=== PATIENT | male | born 1950 | race Caucasian/White ===

== ENCOUNTER 2017-09-14 21:48 | Inpatient (IN) | payer MEDICARE, BC ==
[~2017-09-14] VITALS: Ht 177.8 cm; Wt 86.2 kg
--- NOTE | 2017-09-14 21:51 | NUR ---
TO BED 3 [facility]IB [facility] C/O FEVER AND CHEST CONGESTION, PT WAS GIVEN TYLENOL 650MG AT 1300 PER EMT REPORT. PT AAOX4 NO ACUTE DISTRESS NOTED, RESP EVEN AND UNLABORED. PLACE PT ON CARDIAC MONITORING, CONTINUOUS POX. PENDING ER MD MULLINS.
--- NOTE | 2017-09-14 22:20 | NUR ---
ERIC VALENTINO AT BEDSIDE TO SUSANNA VALENTE.
[2017-09-14 22:53] LABS: BASOPHILS # (AUTO) 0.1 /CMM (0.0-0.2); BASOPHILS % (AUTO) 0.6 % (0.0-2.0); EOSINOPHILS # (AUTO) 0.6 /CMM (0.0-0.7); EOSINOPHILS % (AUTO) 4.9 % (0.0-6.0); HEMATOCRIT 29 % (39-51); LYMPHOCYTES # (AUTO) 1.6 /CMM (0.8-4.8); LYMPHOCYTES % (AUTO) 13.8 % (20.0-44.0); MEAN CORPUSCULAR HEMOGLOBIN 30 PG (26.0-33.0); MEAN CORPUSCULAR HGB CONC 34 g/dl (31.0-36.0); MEAN CORPUSCULAR VOLUME 88 fL (80-96); MONOCYTES # (AUTO) 0.8 /CMM (0.1-1.30); MONOCYTES % (AUTO) 6.9 % (2.0-12.0); NEUTROPHILS # (AUTO) 8.4 /CMM (1.8-8.9); NEUTROPHILS % (AUTO) 73.8 % (43.0-81.0); PLATELET COUNT (AUTO) 228 /CMM (150-450); RDW COEFFICIENT OF VARIATION 14.1 (11.5-15.0); RED BLOOD CELL COUNT(AUTO) 3.33 MIL/uL (4.5-6.0); WHITE BLOOD COUNT (AUTO) 11.3 K/uL (4.3-11.0)
[2017-09-14 23:07] LABS: CALCIUM, SERUM 8.8 mg/dL (8.5-10.1); CARBON DIOXIDE 31 mmol/L (21-32); CHLORIDE 102 mmol/L (98-107); CREATININE 1.1 mg/dL (0.6-1.3); GLUCOSE 121 mg/dL (74-106); POTASSIUM 4.9 mmol/L (3.5-5.1); SODIUM SERUM 137 mmol/L (136-145); UREA NITROGEN, BLOOD 22 mg/dL (7-18)
[2017-09-14 23:18] LABS: TROPONIN I < 0.017 ng/mL (0.00-0.056)
[2017-09-14 23:20] LABS: ALANINE AMINOTRANSFERASE 19 U/L (12-78); ALBUMIN 2.4 g/dL (3.4-5.0); ALKALINE PHOSPHATASE 64 U/L (46-116); ASPARTATE AMINOTRANSFERASE 37 U/L (15-37); B-TYPE NATRIURETIC PEPTIDE 694 PG/ML (0-125); BILIRUBIN,TOTAL 0.2 mg/dL (0.2-1.0); TOTAL PROTEIN, SERUM 6.7 g/dL (6.4-8.2)
--- NOTE | 2017-09-15 00:20 | NUR ---
TELE 268-7
--- NOTE | 2017-09-15 00:34 | NUR ---
REPORT CALLED TO TECHNOLOGY ASSISTANTKATERINE TORRES. PENDING HOSPITAL ADMISSION.
--- NOTE | 2017-09-15 00:35 | NUR ---
RECEIVED REPORT FROM ED IN ER.
[2017-09-15] MEDS ORDERED: CEFTRIAXONE 1 G in IV D5W 50 ML IV ONE (01:00)
[2017-09-15] MEDS ORDERED: LEVOFLOXACIN 500 MG /D5W 100ML 500 MG/100 ML PIGGYBACK IV ONE (01:00)
--- NOTE | 2017-09-15 01:01 | NUR ---
LEVAQUIN 500MG IVPB ENDORSED TO ADOBE DEVELOPERKATERINE TORRES.
[2017-09-15 01:10] VITALS: BP 141/73
--- NOTE | 2017-09-15 01:10 | NUR ---
DIRECTOR OF REVENUE NOTES PT ARRIVED ON TO THE UNIT AT 0110 VIA GURNEY. 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 NO COMPLAINTS OF PAIN, DISTRESS, OR SOB. LUNGS SOUND CLEAR BILATERALLY. PT HAS A RIGHT HAND IV #18. INTACT AND PATENT. ALL PATIENT BELONGINGS HAVE BEEN ACCOUNTED FOR. PT IS TELE MONITORED SINUS RHYTHM RATE 82. PT ORIENTED TO THE UNIT. PT HAS SACRAL REDNESS, LEFT HEEL BLISTER, AND A RASH ON GROIN AREA, ALL DOCUMENTED AND PHOTOGRAPHED. SAFETY PRECAUTIONS IN PLACE, BED IN LOW, LOCKED, POSITION X2 SIDERAILS UP. CALL LIGHT WITHIN REACH. WILL CONTINUE TO MONITOR.
[2017-09-15] MEDS ORDERED: CEFTRIAXONE 1GM BAG (ER ONLY) 50 ML IV ONE (01:16)
[2017-09-15] MEDS ORDERED: LEVOFLOXACIN 500 MG /D5W 100ML 500 MG in PREMIX 1 EA IV SCH (02:00)
[2017-09-15] MEDS ORDERED: Z GUARD REMEDY 2 OZ OINT TP PRN (02:30)
[2017-09-15] MEDS ORDERED: ENOXAPARIN SODIUM 40 MG/0.4 ML DISP.SYRIN SQ SCH (02:30)
[2017-09-15] MEDS ORDERED: ONDANSETRON HCL/PF 4 MG/2 ML VIAL IVP PRN (02:30)
[2017-09-15] MEDS ORDERED: ZOLPIDEM TARTRATE 5 MG TABLET PO PRN (02:30)
[2017-09-15] MEDS ORDERED: ACETAMINOPHEN 325 MG TABLET PO PRN (02:30)
[2017-09-15] MEDS ORDERED: ENOXAPARIN SODIUM 40 MG/0.4 ML DISP.SYRIN SQ ONE (02:37)
[2017-09-15] MEDS ORDERED: MENTHOL/CETYLPYRD (CEPACOL) 1 LOZ LOZENGE PO PRN (03:30)
[2017-09-15] MEDS: IV NS 0.9% 1,000 ML IV PRN ×2 (03:47→21:20)
[2017-09-15 04:00] VITALS: BP 123/69
--- NOTE | 2017-09-15 07:37 | NUR ---
RN CLOSING NOTES PT RESTING IN BED. PT IS A QUADRIPLEGIC. NO COMPLAINTS OF PAIN, DISTRESS, OR SOB. LUNGS SOUND CLEAR BILATERALLY. PT HAS A RIGHT HAND IV #18 RUNNING NS @75ML/HR. PT IS TELE MONITORED SINUS RHYTHM RATE 82. PT ORIENTED TO THE UNIT. SAFETY PRECAUTIONS IN PLACE, BED IN LOW, LOCKED, POSITION X2 SIDERAILS UP. CALL LIGHT WITHIN REACH. WILL ENDORSE TO DAY SHIFT NURSE FOR CONTINUITY OF CARE.
--- NOTE | 2017-09-15 07:44 | NUR ---
AIR CONDITIONING SPECIALIST OPENING NOTES RECEIVED PT A&0X3 RESTING IN BED. TELE: SR 80. PT WITH O2 VIA NC AT 2LPM, PT REPORTING NO SOB, LUNGS AUSCULTATED WITH VERY WET, RHONCHI PRESENT. PT REQUESTING COUGH SUPPRESSANT. PT REPORTING GENERALIZED ARTHRITIC PAIN 8/10 AND REQUESTING NORCO ANALGESIA. PT WITH IVC AT R HAND INTACT AND OPERATIONAL. PT WITH CAMPBELL CATH INTACT AND OPERATIONAL DRAINING LITE YELLOW URINE. PT REQUESTING CALL ABBOTT SUITABLE FOR QUADRIPLEGIC USES- WILL FOLLOW UP WITH CHARGE AND CENT SUPPLY. SAFETY MEASURES CHECKED, BED LOCKED WITH HANDRAILS X4.
[2017-09-15 08:00] VITALS: BP 107/63
[2017-09-15] MEDS ORDERED: HYDR-552 PO (08:20)
[2017-09-15] MEDS ORDERED: ALBU1.257 IH (08:20)
[2017-09-15] MEDS ORDERED: ALLA266C2 TP (08:20)
[2017-09-15] MEDS ORDERED: ALPR0.5T8 PO (08:20)
[2017-09-15] MEDS ORDERED: DULO60CA45 PO (08:20)
[2017-09-15] MEDS ORDERED: GABA-534 PO (08:20)
[2017-09-15] MEDS ORDERED: ATOR10TA PO (08:20)
[2017-09-15] MEDS ORDERED: BISA10SU8 RC (08:20)
[2017-09-15] MEDS ORDERED: MULT-659 PO (08:20)
[2017-09-15] MEDS ORDERED: D-ME118S12 PO (08:20)
[2017-09-15] MEDS ORDERED: ASCO500T9 PO (08:20)
[2017-09-15] MEDS ORDERED: FAMO20TA8 PO (08:20)
[2017-09-15] MEDS ORDERED: BENZ1LOZ58 MM (08:20)
[2017-09-15] MEDS ORDERED: ENOX40DI SQ (08:20)
[2017-09-15] MEDS ORDERED: GABA-536 PO (08:20)
[2017-09-15] MEDS ORDERED: ACET-868 PO (08:20)
[2017-09-15] MEDS ORDERED: TEMA30CA PO (08:20)
[2017-09-15] MEDS ORDERED: DOCU-141 PO (08:20)
[2017-09-15 08:24] LABS: BASOPHILS % (AUTO) 0.3 % (0.0-2.0); EOSINOPHILS # (AUTO) 0.6 /CMM (0.0-0.7); EOSINOPHILS % (AUTO) 5.7 % (0.0-6.0); HEMATOCRIT 28 % (39-51); HEMOGLOBIN 9.6 g/dL (13.5-17.5); LYMPHOCYTES # (AUTO) 1.1 /CMM (0.8-4.8); LYMPHOCYTES % (AUTO) 9.8 % (20.0-44.0); MEAN CORPUSCULAR HEMOGLOBIN 30 PG (26.0-33.0); MEAN CORPUSCULAR HGB CONC 35 g/dl (31.0-36.0); MEAN CORPUSCULAR VOLUME 86 fL (80-96); MONOCYTES # (AUTO) 0.7 /CMM (0.1-1.30); MONOCYTES % (AUTO) 6.3 % (2.0-12.0); NEUTROPHILS # (AUTO) 8.7 /CMM (1.8-8.9); NEUTROPHILS % (AUTO) 77.9 % (43.0-81.0); PLATELET COUNT (AUTO) 203 /CMM (150-450); RDW COEFFICIENT OF VARIATION 12.9 (11.5-15.0); RED BLOOD CELL COUNT(AUTO) 3.19 MIL/uL (4.5-6.0); WHITE BLOOD COUNT (AUTO) 11.1 K/uL (4.3-11.0)
[2017-09-15 08:59] LABS: CALCIUM, SERUM 9.6 mg/dL (8.5-10.1); CREATININE 0.8 mg/dL (0.6-1.3); MAGNESIUM 1.8 mg/dL (1.8-2.4); PHOSPHORUS 4.3 mg/dL (2.5-4.9); POTASSIUM 3.8 mmol/L (3.5-5.1)
[2017-09-15] MEDS: MAGNESIUM HYDROXIDE 30 ML UDC PO PRN (10:17)
[2017-09-15] MEDS: HYDROCODONE/APAP 5/325MG 1 EACH TABLET PO PRN (10:17)
--- NOTE | 2017-09-15 11:20 | NUR ---
WOUND CARE CONSULT: PT PRESENTS WITH QUADRIPLEGIA, INCONTINENCE OF STOOL, DEEP TISSUE INJURY(INTACT) TO SACRUM AND RASH TO PERINEUM, GROIN AREAS, PERIANAL REGION, PRESENT ON ADMISSION. SCARRING AND STAINING OF SKIN NOTED TO SACRAL/BUTTOCKS AREAS. INNER THIGH SCARRING AND STAINING OF SKIN NOTED. FIRST STEP MATTRESS ORDERED. ALL SKIN PROTECTION MEASURES DISCUSSED WITH NURSING STAFF. WILL SEE PRN. VALENTINO IN AGREEMENT WITH PLAN OF CARE. Addendum: 09/15/17 at 1122 by SVETLANA GOMEZ WNDNU Amended: Links added.
[2017-09-15 13:44] LABS: ABG BASE EXCESS 5.3 mmol/L; ABG OXYGEN SATURATION 97.2 % (92.0-98.5); ABG PCO2 29.4 mmHg (35.0-45.0); ABG PO2 100.5 mmHg (75.0-100.0); COHb 0.2 % (0.5-1.5); SITE, ABG Right Radial; VENT MODE, BG RA
[2017-09-15] MEDS: ALBUTEROL HALF STRENGTH 1.25 MG/3 ML VIAL.NEB NEB SCH ×3 (14:15→23:23)
[2017-09-15] MEDS: IPRATROPIUM NEB FS 0.5 MG/2.5 ML AMPUL.NEB NEB SCH ×3 (14:15→23:23)
[2017-09-15 16:00] VITALS: BP 138/71
[2017-09-15] MEDS: CLOTRIMAZOLE 1% 15 GM TUBE TP SCH ×2 (17:00→17:47)
[2017-09-15] MEDS: GUAIFENESIN LA 600 MG TABLET.SA PO SCH ×2 (17:21→21:00)
--- NOTE | 2017-09-15 18:56 | NUR ---
MS RN NOTES. PT A&0X3 RESTING IN BED WITH AT BEDSIDE. PT TOLERATING ROOM AIR, REPORTING NO SOB. PT WITH IVC AT R HAND INTACT AND OPERATIONAL. PT REPORTING NO PAIN AT THIS TIME. PT WITH CAMPBELL CATH INTACT AND OPERATIONAL DRAINING LITE YELLOW URINE. PT BED LOCKED WITH HANDRAILSX4. NOW WITH INFLATING MATTRESS TOPPER. PT WITHOUT CONCERN OR COMPLAINT AT THIS TIME. WILL ENDORSE TO NIGHT NURSE.
[2017-09-15] MEDS ORDERED: VANCOMYCIN 1.25 GM in IV D5W 500 ML IV ONE (19:00)
[2017-09-15] MEDS ORDERED: FEE PK DOSING 1 MIN EA MC ONE (19:05)
--- NOTE | 2017-09-15 19:30 | NUR ---
MS/RN OPENING NOTES PT RECEIVED IN BED. A/OX3 WITH AT BEDSIDE. ON ROOM AIR, BREATHING EVEN AND UNLABORED. NON PRODUCTIVE COUGH NOTED. TRACH CAPPED. CAMPBELL IN PLACE AND DRAINING TO GRAVITY. IV TO RIGHT HAND PATENT AND INTACT. PER PT AND , REQUESTED MEDICATION LIST FROM [facility]. FACILITY SAID THEY WOULD FAX THE LIST TOMORROW MORNING. BED IN LOW/LOCKED POSITION. CALL LIGHT IN REACH HOWEVER PT REQUESTING CALL LIGHT THAT CAN BE USED BY BLOWING INTO IT DUE TO HIS QUADRAPLEGIA. DAY SHIFT RN FOLLOWED UP WITH ENGINEERING AND NONE ARE AVAILABLE AT THIS TIME. PT AND AWARE. BED IN LOW/LOCKED POSITION WITH CALL LIGHT IN REACH. SIDE RAILS UPX2. WILL CONTINUE TO MONITOR
[2017-09-15 20:00] VITALS: BP 141/77
[2017-09-15] MEDS: ENOXAPARIN SODIUM 40 MG/0.4 ML DISP.SYRIN SQ SCH (21:33)
--- NOTE | 2017-09-15 21:35 | NUR ---
MS/RN NOTES PT RECEIVED MUCINEX AT 1721. TOO CLOSE IN TIME TO ADMINISTER SCHEDULE 2100 DOSE.
--- NOTE | 2017-09-16 01:01 | NUR ---
MS/RN NOTES PT REQUESTING XANAX, TAKES 0.5MG PO AT [facility]. SPRAY DRIER OPERATOR, NELY ON UNIT, WITH ORDERS FOR XANAX 0.5MG PO HS PRN. ORDERS NOTED, VERIFIED AND CARRIED OUT. WILL ADMINISTER PER PT REQUEST.
[2017-09-16] MEDS ORDERED: ALPRAZOLAM 0.5 MG TABLET ONE (01:07)
[2017-09-16] MEDS: ALPRAZOLAM 0.25 MG TABLET PO PRN (01:16)
[2017-09-16] MEDS: LEVOFLOXACIN 500 MG /D5W 100ML 500 MG in PREMIX 1 EA IV SCH (02:18)
[2017-09-16] MEDS: ALBUTEROL HALF STRENGTH 1.25 MG/3 ML VIAL.NEB NEB SCH ×6 (03:31→17:00)
[2017-09-16] MEDS: IPRATROPIUM NEB FS 0.5 MG/2.5 ML AMPUL.NEB NEB SCH ×5 (03:32→20:54)
[2017-09-16] MEDS: HYDROCODONE/APAP 5/325MG 1 EACH TABLET PO PRN ×2 (04:24→18:24)
--- NOTE | 2017-09-16 07:45 | NUR ---
MS/RN OPENING NOTES PT WITH EYES CLOSED. EASILY AROUSABLE. A/OX3. ON ROOM AIR, BREATHING EVEN AND UNLABORED. NON PRODUCTIVE COUGH PRESENT. TRACH CAPPED. CAMPBELL IN PLACE AND DRAINING TO GRAVITY. IV TO RIGHT HAND PATENT AND INTACT. RELAYED TO DAY SHIFT RN REQUEST OF MEDICATION LIST FROM [facility]. SHOULD BE EXPECTED THIS AM. WILLING TO FOLLOW UP WITH FACILITY THIS MORNING. BED IN LOW/LOCKED POSITION. BED IN LOW/LOCKED POSITION WITH CALL LIGHT IN REACH. SIDE RAILS UPX2. ENDORSED TO AM SHIFT CARLOS AND CHECK AVAILABILITY OF NEW CALL LIGHT.
[2017-09-16 08:00] VITALS: BP 138/73
--- NOTE | 2017-09-16 08:32 | NUR ---
RN OPENING NOTES RECEIVED PT. PT IS STABLE AND RESTING IN BED. A/OX4, PT IS BEDBOUND DUE TO QUADRIPLEGIA. NO S/S OF RESPIRATORY DISTRESS OR SOB, PT IS TRACHED/CAPPED WITH NO VENT SUPPORT. PT IS ON RA WITH O2 SAT WNL. FC IN PLACE AND PATENT. IV ACCESS LOCATED ON R HAND 18 G INFUSING NS AT 75 ML/HR. PT REQUESTS WE RECEIVE FAX OF MED LIST FROM [facility] IN ORDER TO RECONCILE, STATING THAT "I AM NOT GETTING SLEEP AND MY PAIN IS UNCONTROLLED WITHOUT THOSE MEDS". WILL F/U WITH FACILITY. SAFETY MEASURES IN PLACE, CALL LIGHT WITHIN REACH. WILL CONTINUE TO MONITOR.
[2017-09-16] MEDS: GUAIFENESIN LA 600 MG TABLET.SA PO SCH ×2 (08:43→21:12)
[2017-09-16] MEDS: VANCOMYCIN 1 GM in IV D5W 250 ML IV SCH ×2 (08:43→20:40)
[2017-09-16] MEDS: CLOTRIMAZOLE 1% 15 GM TUBE TP SCH ×2 (09:37→17:00)
[2017-09-16 16:00] VITALS: BP 139/80
[2017-09-16] MEDS: IV NS 0.9% 1,000 ML IV PRN (18:14)
[2017-09-16] MEDS: PIPERACILLIN /TAZOBACTAM 4.5 G in IV D5W 50 ML IV SCH (18:19)
--- NOTE | 2017-09-16 18:55 | NUR ---
RN CLOSING NOTES PT IS STABLE AND RESTING IN BED. NO S/S OF DISTRESS OR SOB. NO C/O PAIN AT THIS TIME. PT INR ORDERED STAT FOR PT IN ORDER TO ADMINISTER COUMADIN. AWAITING LAB. ALL PT NEEDS ANTICIPATED AND MET. SAFETY MEASURES IN PLACE. CALL LIGHT WITHIN REACH. WILL ENDORSE TO EQUIPMENT COORDINATOR FOR CARLOS. Addendum: 09/16/17 at 1858 by JONN JONES WRONG PATIENT. PT STABLE AND RESTING IN BED. AT BEDSIDE. MD PLACED MEDICATION RECONCILIATION ORDERS. CHARGE NURSE SPEAKING WITH MD TO CLARIFY. SAFETY MEASURES IN PLACE, CALL LIGHT WITHIN REACH. WILL ENDORSE TO EQUIPMENT COORDINATOR FOR CARLOS.
[2017-09-16] MEDS ORDERED: SUCRALFATE 1 G/10 ML UDC PO ONE (19:00)
[2017-09-16] MEDS ORDERED: HYDROCODONE/APAP 5/325MG 1 EACH TABLET PO PRN (19:00)
[2017-09-16] MEDS ORDERED: ALPRAZOLAM 0.5 MG TABLET PO PRN (19:00)
--- NOTE | 2017-09-16 19:40 | NUR ---
MS RN OPENING NOTES RECEIVED PT IN BED ALERT.AWAKE,VERBALLY RESPONSIVE.TRACH PATENT, RESPIRATIONS EVEN, UNLABORED,NO RESPIRATORY DISTRESS NOTED. DENIES ANY PAIN OR DISCOMFORT AT THIS TIME. F/C IN PLACE DRAINING YELLOW COLOR URINE.KEPT CLEAN AND COMFORTABLE.ATTENDED ALL PT NEEDS. CALL LIGHT WITHIN REACH. WILL CONTINUE TO MONITOR ACCORDINGLY.
[2017-09-16 20:00] VITALS: BP 138/68
[2017-09-16] MEDS ORDERED: GABAPENTIN 300 MG CAPSULE ONE (20:13)
[2017-09-16] MEDS: GABAPENTIN 300 MG CAPSULE PO SCH (20:18)
[2017-09-16] MEDS ORDERED: SUCRALFATE 1 G/10 ML UDC ONE (20:40)
[2017-09-16] MEDS ORDERED: TEMAZEPAM 15 MG CAPSULE ONE (20:41)
[2017-09-16] MEDS ORDERED: ATORVASTATIN 10 MG TABLET ONE (21:11)
[2017-09-16] MEDS: TEMAZEPAM 15 MG CAPSULE PO PRN (21:12)
[2017-09-16] MEDS: ATORVASTATIN 10 MG TABLET PO SCH (21:12)
[2017-09-16] MEDS: ENOXAPARIN SODIUM 40 MG/0.4 ML DISP.SYRIN SQ SCH (21:13)
[2017-09-16] MEDS: BISACODYL SUPP (10 MG) 10 MG/SUPP.RECT SUPP.RECT RC SCH (21:22)
[2017-09-16 22:00] VITALS: BP 130/68
[2017-09-16 22:49] LABS: BASOPHILS % (AUTO) 0.4 % (0.0-2.0); EOSINOPHILS # (AUTO) 0.6 /CMM (0.0-0.7); EOSINOPHILS % (AUTO) 8.4 % (0.0-6.0); HEMATOCRIT 25 % (39-51); HEMOGLOBIN 8.7 g/dL (13.5-17.5); LYMPHOCYTES # (AUTO) 1.1 /CMM (0.8-4.8); MEAN CORPUSCULAR HEMOGLOBIN 30 PG (26.0-33.0); MEAN CORPUSCULAR HGB CONC 34 g/dl (31.0-36.0); MEAN CORPUSCULAR VOLUME 87 fL (80-96); MONOCYTES # (AUTO) 0.4 /CMM (0.1-1.30); MONOCYTES % (AUTO) 6.1 % (2.0-12.0); NEUTROPHILS % (AUTO) 70.1 % (43.0-81.0); PLATELET COUNT (AUTO) 194 /CMM (150-450); RDW COEFFICIENT OF VARIATION 12.9 (11.5-15.0); RED BLOOD CELL COUNT(AUTO) 2.93 MIL/uL (4.5-6.0); WHITE BLOOD COUNT (AUTO) 7.1 K/uL (4.3-11.0)
[2017-09-16 22:53] LABS: CALCIUM, SERUM 9.4 mg/dL (8.5-10.1); CREATININE 0.6 mg/dL (0.6-1.3); MAGNESIUM 1.5 mg/dL (1.8-2.4); PHOSPHORUS 4.1 mg/dL (2.5-4.9); POTASSIUM 3.5 mmol/L (3.5-5.1)
[2017-09-17] MEDS: IPRATROPIUM NEB FS 0.5 MG/2.5 ML AMPUL.NEB NEB SCH ×7 (00:01→23:26)
[2017-09-17] MEDS: ALBUTEROL HALF STRENGTH 1.25 MG/3 ML VIAL.NEB NEB SCH ×6 (00:04→23:26)
[2017-09-17] MEDS: PIPERACILLIN /TAZOBACTAM 4.5 G in IV D5W 50 ML IV SCH ×4 (00:19→17:31)
[2017-09-17] MEDS: LEVOFLOXACIN 500 MG /D5W 100ML 500 MG in PREMIX 1 EA IV SCH (01:55)
[2017-09-17] MEDS: HYDROCODONE/APAP 5/325MG 1 EACH TABLET PO PRN ×3 (04:41→21:00)
--- NOTE | 2017-09-17 06:37 | NUR ---
MS RN CLOSING NOTES PT IN BED,AWAKE,ALERT,VERBALLY RESPONSIVE. TRACH PATENT NO SOB,NO APPARENT DISTRESS NOTED.NO S/SX OF PAIN OR DISCOMFORT NOTED. IV SITE INTACT,PATENT.F/C IN PLACE DRAINING YELLOW COLOR URINE.KEPT CLEAN AND COMFORTABLE.ATTENDED ALL NEEDS.WILL MONITOR ACCORDINGLY.
--- NOTE | 2017-09-17 07:30 | NUR ---
RN OPEN NOTES RECEIVED REPORT FROM CORRESPONDENT NURSE. PATIENT IS IN BED, AWAKE AND ALERT TO NAME, PLACE AND TIME. VERY PLEASANT TO TALK WITH. BED IN LOW POSITION, LOCKED AND TWO SIDE RAILS ARE UP. CALL LIGHT WITHIN REACH FOR SAFETY. NO SIGNS AND SYMPTOMS OF DISTRESS. BREATHING IS UNLABORED AND EVEN BILATERALLY. WILL CONTINUE TO MONITOR AND ASSESS PATIENT THROUGH OUT MY SHIFT
[2017-09-17 08:00] VITALS: BP 135/70
[2017-09-17 08:33] LABS: CALCIUM, SERUM 9.7 mg/dL (8.5-10.1); CREATININE 0.6 mg/dL (0.6-1.3); POTASSIUM 4.1 mmol/L (3.5-5.1)
[2017-09-17] MEDS: DOCUSATE SODIUM 100 MG CAPSULE PO SCH ×2 (09:27→17:40)
[2017-09-17] MEDS: ASCORBIC ACID 500 MG TABLET PO SCH ×2 (09:28→17:40)
[2017-09-17] MEDS: FAMOTIDINE (20 MG) 20 MG TABLET PO SCH ×2 (09:28→17:40)
[2017-09-17] MEDS: GUAIFENESIN LA 600 MG TABLET.SA PO SCH ×2 (09:28→20:07)
[2017-09-17] MEDS: GABAPENTIN 300 MG CAPSULE PO SCH ×2 (09:28→20:07)
[2017-09-17] MEDS: DULOXETINE HCL 30 MG CAPSULE.DR PO SCH (09:28)
[2017-09-17] MEDS: CLOTRIMAZOLE 1% 15 GM TUBE TP SCH ×2 (09:29→17:42)
[2017-09-17] MEDS: ENOXAPARIN SODIUM 40 MG/0.4 ML DISP.SYRIN SQ SCH ×2 (09:41→21:00)
[2017-09-17] MEDS: VANCOMYCIN 1 GM in IV D5W 250 ML IV SCH ×2 (09:56→20:23)
[2017-09-17] MEDS: GABAPENTIN 400 MG CAPSULE PO SCH (14:56)
[2017-09-17] MEDS ORDERED: ALBUTEROL HALF STRENGTH 1.25 MG/3 ML VIAL.NEB NEB SCH (15:30)
[2017-09-17 16:00] VITALS: BP 153/79
[2017-09-17] MEDS: LACTOBACILLUS RHAMNOSUS GG 1 EACH CAP.SPRINK PO SCH (17:38)
--- NOTE | 2017-09-17 18:00 | NUR ---
SPUTUM AND URINE SPECIMEN COLLECTED. LAB NOTIFIED
[2017-09-17] MEDS: IV NS 0.9% 1,000 ML IV PRN (18:44)
--- NOTE | 2017-09-17 18:52 | NUR ---
RN CLOSING NOTES PATIENT IS IN BED, AWAKE AND ALERT TO NAME, PLACE AND TIME. AT BEDSIDE. NO SIGNS AND SYMPTOMS OF DISTRESS. IV SITE IS INTACT AND PATENT, HL ONLY. CAMPBELL IS IN PLACE. BED IN LOW POSITION, LOCKED AND TWO SIDE RAILS ARE UP. CALL LIGHT WITHIN REACH FOR SAFETY. ALL NURSING CARE ANTICIPATED AND ATTENDED FOR. WILL ENDORSE TO VALVE SETTER FOR CARLOS
--- NOTE | 2017-09-17 19:30 | NUR ---
MS RN OPENING NOTES RECEIVED PT IN BED AWAKE ALERT,VERBALLY RESPONSIVE.TRACH PATENT,ON ROOM AIR, NO RESPIRATORY DISTRESS NOTED. O2 SAT 98%.DENIES ANY PAIN OR DISCOMFORT AT THIS TIME. F/C IN PLACE DRAINING YELLOW COLOR URINE. KEPT CLEAN AND COMFORTABLE.ATTENDED ALL NEEDS.WILL CONTINUE TO MONITOR ACCORDINGLY
[2017-09-17 20:00] VITALS: BP 162/75
[2017-09-17 20:30] VITALS: BP 140/76
[2017-09-17] MEDS ORDERED: hydrALAZINE HCL 25 MG TABLET ONE (20:42)
--- NOTE | 2017-09-17 20:45 | NUR ---
MS RN NOTE PT NOTED WITH BP 162/75 P 92, KATHI DOW NOTIFIED, NEW ORDER RECEIVED FOR HYDRALAZINE 25 MG PO Q6H PRN FOR BP.155. ORDER NOTED AND CARRIED OUT.MEDICATION ADMINISTERED ORDERED.
[2017-09-17] MEDS: hydrALAZINE HCL 25 MG TABLET PO PRN (20:48)
[2017-09-17] MEDS: TEMAZEPAM 15 MG CAPSULE PO PRN (21:01)
[2017-09-17] MEDS: ATORVASTATIN 10 MG TABLET PO SCH (21:01)
--- NOTE | 2017-09-17 21:30 | NUR ---
MS RN NOTES PT REFUSED DULCOLAX SUPPOSITORY TO BE ADMINISTERED,OFFERED X3 EXPLAINED BENEFITS,REFUSING.REFUSED LOVENOX, STATED "IT WAS GIVEN TO ME THIS MORNING I DON'T NEED IT"WILL CONTINUE TO MONITOR ACCORDINGLY.
[2017-09-17] MEDS: BISACODYL SUPP (10 MG) 10 MG/SUPP.RECT SUPP.RECT RC SCH (21:32)
[2017-09-18] MEDS: PIPERACILLIN /TAZOBACTAM 4.5 G in IV D5W 50 ML IV SCH ×4 (00:02→18:00)
[2017-09-18] MEDS: LEVOFLOXACIN 500 MG /D5W 100ML 500 MG in PREMIX 1 EA IV SCH (01:45)
[2017-09-18] MEDS: ALPRAZOLAM 0.25 MG TABLET PO PRN (01:55)
[2017-09-18] MEDS: ALBUTEROL HALF STRENGTH 1.25 MG/3 ML VIAL.NEB NEB SCH ×6 (03:42→22:31)
[2017-09-18] MEDS: IPRATROPIUM NEB FS 0.5 MG/2.5 ML AMPUL.NEB NEB SCH ×6 (03:42→22:31)
[2017-09-18 06:18] LABS: APPEARANCE,URINE CLEAR (CLEAR); BILIRUBIN,URINE NEGATIVE (NEGATIVE); BLOOD, URINE TRACE-INTA Ery/uL (NEGATIVE); COLOR,URINE YELLOW (YELLOW); KETONES,URINE NEGATIVE (NEGATIVE); LEUKOCYTE ESTERASE ,URINE 1+ (NEGATIVE); NITRITE, URINE NEGATIVE (NEGATIVE); PH,URINE 6.5 (5.0-8.0); PROTEIN,URINE NEGATIVE (NEGATIVE); UGLUCOSE NEGATIVE (NEGATIVE); UROBILINOGEN,URINE 0.2 EU/dL (0.2)
[2017-09-18 06:38] LABS: BACTERIA,URINE Few /HPF (None Seen); SQUAMOUS EPITHELIAL CELL,UR Few /HPF (None Seen)
--- NOTE | 2017-09-18 06:42 | NUR ---
MS RN CLOSING NOTES PT ALERT,AWAKE,VERBALLY RESPONSIVE,TRACH PATENT,NO RESPIRATORY DISTRESS NOTED, ON ROOM AIR. DENIES ANY PAIN OR DISCOMFORT NOTED. F/C IN PLACE DRAINING YELLOW COLOR URINE.KEPT CLEAN AND COMFORTABLE. ATTENDED ALL NEEDS
[2017-09-18 08:00] VITALS: BP 139/67
--- NOTE | 2017-09-18 08:51 | NUR ---
RN OPENING NOTES PATIENT RESTING COMFORTABLY IN BED. AOX4. NO ACUTE DISTRESS. RESPIRATIONS EVEN AND UNLABORED. DENIES ANY PAIN. DENIES SOB AND CP. SATURATING ADEQUATELY ON RA TRACH IN PLACE. F/C IN PLACE DRAINING URINE. RIGHT HAND 18G PATENT AND INTACT WITH NS RUNNING AT 75ML/HR. BED LOCKED IN THE LOWEST POSITION WITH SIDERAILS UP X2. CALL LIGHT WITHIN REACH. WILL CONTINUE TO MONITOR, ASSESS AND EDUCATE PATIENT THROUGHOUT SHIFT.
[2017-09-18] MEDS: VANCOMYCIN 1 GM in IV D5W 250 ML IV SCH (09:44)
[2017-09-18] MEDS: GUAIFENESIN LA 600 MG TABLET.SA PO SCH ×2 (09:49→20:21)
[2017-09-18] MEDS: FAMOTIDINE (20 MG) 20 MG TABLET PO SCH ×2 (09:49→16:31)
[2017-09-18] MEDS: LACTOBACILLUS RHAMNOSUS GG 1 EACH CAP.SPRINK PO SCH ×2 (09:49→16:31)
[2017-09-18] MEDS: GABAPENTIN 300 MG CAPSULE PO SCH ×2 (09:49→20:21)
[2017-09-18] MEDS: DOCUSATE SODIUM 100 MG CAPSULE PO SCH ×2 (09:49→16:31)
[2017-09-18] MEDS: DULOXETINE HCL 30 MG CAPSULE.DR PO SCH (09:49)
[2017-09-18] MEDS: ASCORBIC ACID 500 MG TABLET PO SCH ×2 (09:49→16:31)
[2017-09-18] MEDS: ENOXAPARIN SODIUM 40 MG/0.4 ML DISP.SYRIN SQ SCH ×2 (09:51→20:37)
[2017-09-18] MEDS: CLOTRIMAZOLE 1% 15 GM TUBE TP SCH ×2 (09:56→17:33)
[2017-09-18 11:18] LABS: CALCIUM, SERUM 9.6 mg/dL (8.5-10.1); CREATININE 0.7 mg/dL (0.6-1.3); POTASSIUM 3.9 mmol/L (3.5-5.1)
[2017-09-18] MEDS: HYDROCODONE/APAP 5/325MG 1 EACH TABLET PO PRN ×3 (11:18→21:00)
[2017-09-18] MEDS ORDERED: ALBUTEROL HALF STRENGTH 1.25 MG/3 ML VIAL.NEB NEB PRN (12:30)
[2017-09-18 16:00] VITALS: BP 156/76
[2017-09-18] MEDS: GABAPENTIN 400 MG CAPSULE PO SCH (16:31)
[2017-09-18] MEDS: IV NS 0.9% 1,000 ML IV PRN (16:46)
--- NOTE | 2017-09-18 18:45 | NUR ---
RN NON ADMIN NOTES 1800 DOSE OF ZOSYN HELD. 1300 DOSE NOT COMPLETED. WILL NOTIFY NIGHT RN. VERIFIED WITH SECOND RN.
--- NOTE | 2017-09-18 19:10 | NUR ---
RN NOTES PATIENT RESTING COMFORTABLE AT THIS TIME. AOX4. CAPPED TRACH IN PLACE. NO ACUTE DISTRESS. RESPIRATIONS EVEN AND UNLABORED. SKIN CARE DONE. PATIENT TURNED Q2. ALL NEEDS MET. ALL MEDS GIVEN APPROPRIATE. IV PATENT AND INTACT. BED LOCKED IN THE LOWEST POSITION WITH SIDE RAILS UP X2. WILL ENDORSE TO NIGHT RN FOR CARLOS.
--- NOTE | 2017-09-18 19:52 | NUR ---
MS/RN OPENING NOTES PATIENT IN BED, ALERT, ORIENTED X3, ABLE TO VERBALIZE NEEDS. PATIENT REQUIRE EXTENSIVE ASSISTANCE WITH ADL, QUADRIPLEGIC, RECEIVED ENDORSEMENT FROM AM RN, PATIENT REQUESTED FOR SLEEPING PILL RESTORIL FOR BEDTIME AND INFORMED THAT HE TAKES LOVENOX DURING THE DAY TIME AND PREFER TO TAKE IT AT DAYTIME, WILL INFORM MD AND FOLLOW UP. NEEDS REPOSITON AND TURNING , IV FLUIDS ORDER NS AT 75 ML/HR. WILL CONTINUE TO MONITOR. RESPITATION EVEN AND UNLABORED, SKIN WARM TO TOUCH, ON CAMPBELL CATHETER.
[2017-09-18 20:00] VITALS: BP 127/56
--- NOTE | 2017-09-18 20:00 | NUR ---
RN CLOSING NOTES PATIENT IS RESTING COMFORTABLY IN BED AT THIS TIME. AOX4. COMPLAINING OF MILD PAIN. DENIES SOB AND CP. RESPIRATIONS EVEN AND UNLABORED. NO ACUTE DISTRESS. IV PATENT AND INTACT. BED LOCKED IN THE LOWEST POSITION. SIDE RAILS UP X2. ALL NEEDS MET ALL MEDS GIVEN APPROPRIATE. WILL ENDORSE TO NIGHT RN FOR CARLOS.
[2017-09-18] MEDS: VANCOMYCIN 0.75 GM in IV D5W 250 ML IV SCH (20:08)
[2017-09-18] MEDS: ATORVASTATIN 10 MG TABLET PO SCH (21:01)
[2017-09-18] MEDS: BISACODYL SUPP (10 MG) 10 MG/SUPP.RECT SUPP.RECT RC SCH (21:05)
[2017-09-18] MEDS: TEMAZEPAM 15 MG CAPSULE PO PRN (21:24)
[2017-09-19] MEDS: PIPERACILLIN /TAZOBACTAM 4.5 G in IV D5W 50 ML IV SCH ×5 (00:48→23:41)
[2017-09-19] MEDS: LEVOFLOXACIN (500MG) 500 MG TABLET PO SCH (02:34)
[2017-09-19] MEDS: ALBUTEROL HALF STRENGTH 1.25 MG/3 ML VIAL.NEB NEB SCH ×7 (02:43→23:30)
[2017-09-19] MEDS: IPRATROPIUM NEB FS 0.5 MG/2.5 ML AMPUL.NEB NEB SCH ×6 (02:43→23:30)
[2017-09-19] MEDS: IV NS 0.9% 1,000 ML IV PRN (06:50)
[2017-09-19 06:59] LABS: BASOPHILS % (AUTO) 0.1 % (0.0-2.0); EOSINOPHILS # (AUTO) 0.8 /CMM (0.0-0.7); EOSINOPHILS % (AUTO) 11.3 % (0.0-6.0); HEMATOCRIT 27 % (39-51); HEMOGLOBIN 9.4 g/dL (13.5-17.5); LYMPHOCYTES % (AUTO) 14.2 % (20.0-44.0); MEAN CORPUSCULAR HEMOGLOBIN 31 PG (26.0-33.0); MEAN CORPUSCULAR HGB CONC 35 g/dl (31.0-36.0); MEAN CORPUSCULAR VOLUME 87 fL (80-96); MONOCYTES # (AUTO) 0.4 /CMM (0.1-1.30); MONOCYTES % (AUTO) 6.2 % (2.0-12.0); NEUTROPHILS # (AUTO) 4.7 /CMM (1.8-8.9); NEUTROPHILS % (AUTO) 68.2 % (43.0-81.0); PLATELET COUNT (AUTO) 212 /CMM (150-450); RDW COEFFICIENT OF VARIATION 12.9 (11.5-15.0); WHITE BLOOD COUNT (AUTO) 6.9 K/uL (4.3-11.0)
--- NOTE | 2017-09-19 07:30 | NUR ---
RN OPENING NOTES PATIENT RESTING COMFORTABLY IN BED. AOX4. NO ACUTE DISTRESS, NO SOB NOTED. DENIES ANY PAIN OR DISCOMFORT. SATURATING ADEQUATELY ON RA TRACH IN PLACE. F/C IN PLACE DRAINING URINE. IV SITE PATENT AND INTACT WITH NS RUNNING AT 75ML/HR. BED LOCKED IN THE LOWEST POSITION WITH SIDERAILS UP X2. CALL LIGHT WITHIN REACH. WILL CONTINUE TO MONITOR ACCORDINGLY
--- NOTE | 2017-09-19 07:45 | NUR ---
MS/RN CLOSING NOTES GIVEN REPORT TO AM RN FOR CARLOS. PATIENT ALERT, ORIENTED X3, EXTENSIVE ASSOSTANCE NEEDED, FEEDING ASSISTANCE, ASPIRATION PRECAUTION, ON MONITORING AND REPOSITION AND TURNING , SKIN WARM TO TOUCH, BED IN LOCK POSITION.
[2017-09-19 07:52] LABS: CALCIUM, SERUM 9.7 mg/dL (8.5-10.1); CREATININE 0.6 mg/dL (0.6-1.3); MAGNESIUM 1.8 mg/dL (1.8-2.4); PHOSPHORUS 4.4 mg/dL (2.5-4.9); POTASSIUM 3.8 mmol/L (3.5-5.1)
[2017-09-19 08:00] VITALS: BP 154/71
[2017-09-19] MEDS: VANCOMYCIN 0.75 GM in IV D5W 250 ML IV SCH ×2 (09:10→20:58)
[2017-09-19] MEDS: DOCUSATE SODIUM 100 MG CAPSULE PO SCH ×2 (09:11→17:44)
[2017-09-19] MEDS: MAGNESIUM HYDROXIDE 30 ML UDC PO PRN (09:11)
[2017-09-19] MEDS: GABAPENTIN 300 MG CAPSULE PO SCH ×2 (09:11→21:20)
[2017-09-19] MEDS: DULOXETINE HCL 30 MG CAPSULE.DR PO SCH (09:11)
[2017-09-19] MEDS: GUAIFENESIN LA 600 MG TABLET.SA PO SCH ×2 (09:11→21:20)
[2017-09-19] MEDS: ASCORBIC ACID 500 MG TABLET PO SCH ×2 (09:12→17:43)
[2017-09-19] MEDS: HYDROCODONE/APAP 5/325MG 1 EACH TABLET PO PRN ×3 (09:12→21:47)
[2017-09-19] MEDS: FAMOTIDINE (20 MG) 20 MG TABLET PO SCH ×2 (09:12→17:43)
[2017-09-19] MEDS: LACTOBACILLUS RHAMNOSUS GG 1 EACH CAP.SPRINK PO SCH ×2 (09:12→17:43)
[2017-09-19] MEDS: ENOXAPARIN SODIUM 40 MG/0.4 ML DISP.SYRIN SQ SCH (09:14)
[2017-09-19] MEDS: CLOTRIMAZOLE 1% 15 GM TUBE TP SCH ×2 (09:27→17:53)
[2017-09-19 16:00] VITALS: BP 134/60
[2017-09-19] MEDS: GABAPENTIN 400 MG CAPSULE PO SCH (17:48)
--- NOTE | 2017-09-19 19:30 | NUR ---
RN CLOSING NOTES PATIENT IN BED RESTING. NO ACUTE DISTRESS, NO SOB NOTED. ALL NEEDS ATTENDED AND PROVIDED. KEPT A SAFE ENVIRONMENT. BED IN LOW, LOCKED POSITION, SIDERIALS UPX2. CALL LIGHT IN REACH. ENDORSED TO NIGHT RN FOR CARLOS.
--- NOTE | 2017-09-19 19:30 | NUR ---
MS RN INITIAL NOTE PT RECEIVED AWAKE IN BED. A/O X4 AND ABLE TO VERBALIZE NEEDS. ON ROOM AIR AND TOLERATING WELL. BREATHING EVEN, REGULAR AND UNLABORED. TRACH WITH CAP PRESENT AND INTACT. NO ACUTE DISTRESS NOTED. HOB ELEVATED. IV R HAND CLEAN, INTACT AND PATENT. CALL LIGHT WITHIN REACH. WILL CONTINUE TO MONITOR.
[2017-09-19 20:00] VITALS: BP 140/79
[2017-09-19] MEDS: ATORVASTATIN 10 MG TABLET PO SCH (21:19)
[2017-09-19] MEDS: TEMAZEPAM 15 MG CAPSULE PO PRN (21:20)
[2017-09-19] MEDS: BISACODYL SUPP (10 MG) 10 MG/SUPP.RECT SUPP.RECT RC SCH (22:00)
[2017-09-20] MEDS: LEVOFLOXACIN (500MG) 500 MG TABLET PO SCH (01:27)
[2017-09-20] MEDS: ALPRAZOLAM 0.25 MG TABLET PO PRN (02:52)
[2017-09-20] MEDS: IPRATROPIUM NEB FS 0.5 MG/2.5 ML AMPUL.NEB NEB SCH ×4 (04:05→16:18)
[2017-09-20] MEDS: ALBUTEROL HALF STRENGTH 1.25 MG/3 ML VIAL.NEB NEB SCH ×4 (04:05→16:18)
[2017-09-20] MEDS: PIPERACILLIN /TAZOBACTAM 4.5 G in IV D5W 50 ML IV SCH ×2 (05:34→13:30)
[2017-09-20] MEDS: IV NS 0.9% 1,000 ML IV PRN (06:06)
[2017-09-20 07:46] LABS: BASOPHILS % (AUTO) 0.3 % (0.0-2.0); EOSINOPHILS % (AUTO) 12.9 % (0.0-6.0); HEMATOCRIT 29 % (39-51); HEMOGLOBIN 9.8 g/dL (13.5-17.5); LYMPHOCYTES % (AUTO) 13.7 % (20.0-44.0); MEAN CORPUSCULAR HEMOGLOBIN 30 PG (26.0-33.0); MEAN CORPUSCULAR HGB CONC 34 g/dl (31.0-36.0); MEAN CORPUSCULAR VOLUME 88 fL (80-96); MONOCYTES # (AUTO) 0.5 /CMM (0.1-1.30); MONOCYTES % (AUTO) 6.7 % (2.0-12.0); NEUTROPHILS % (AUTO) 66.4 % (43.0-81.0); PLATELET COUNT (AUTO) 244 /CMM (150-450); RED BLOOD CELL COUNT(AUTO) 3.26 MIL/uL (4.5-6.0); WHITE BLOOD COUNT (AUTO) 7.5 K/uL (4.3-11.0)
--- NOTE | 2017-09-20 07:57 | NUR ---
MS RN CLOSING NOTE REMAINED STABLE DURING SHIFT. NO S/SX OF RESPIRATORY DISTRESS NOTED. TRACH IN PLACE AND BREATHING ROOM AIR. ALL NEEDS ATTENDED TO PROMPTLY. KEPT CLEAN AND DRY. HOB ELEVATED. ALL DUE MEDS GIVEN ORDERED AND WELL TOLERATED. CALL LIGHT WITHIN REACH. WILL ENDORSE TO NEXT SHIFT FOR CONTINUITY OF CARE.
[2017-09-20 08:00] VITALS: BP 170/73
[2017-09-20 08:30] VITALS: BP 154/72
[2017-09-20 08:36] LABS: CALCIUM, SERUM 9.4 mg/dL (8.5-10.1); CREATININE 0.7 mg/dL (0.6-1.3); MAGNESIUM 1.9 mg/dL (1.8-2.4); PHOSPHORUS 3.9 mg/dL (2.5-4.9); POTASSIUM 3.8 mmol/L (3.5-5.1)
[2017-09-20] MEDS: CLOTRIMAZOLE 1% 15 GM TUBE TP SCH (09:00)
[2017-09-20] MEDS: DOCUSATE SODIUM 100 MG CAPSULE PO SCH (09:49)
[2017-09-20] MEDS: MAGNESIUM HYDROXIDE 30 ML UDC PO PRN (09:49)
[2017-09-20] MEDS: GUAIFENESIN LA 600 MG TABLET.SA PO SCH ×2 (09:49→20:23)
[2017-09-20] MEDS: GABAPENTIN 300 MG CAPSULE PO SCH ×2 (09:49→20:23)
[2017-09-20] MEDS: LACTOBACILLUS RHAMNOSUS GG 1 EACH CAP.SPRINK PO SCH (09:50)
[2017-09-20] MEDS: FAMOTIDINE (20 MG) 20 MG TABLET PO SCH (09:50)
[2017-09-20] MEDS: DULOXETINE HCL 30 MG CAPSULE.DR PO SCH (09:51)
[2017-09-20] MEDS: ASCORBIC ACID 500 MG TABLET PO SCH (09:52)
[2017-09-20] MEDS: HYDROCODONE/APAP 5/325MG 1 EACH TABLET PO PRN ×2 (09:54→15:52)
[2017-09-20] MEDS: ENOXAPARIN SODIUM 40 MG/0.4 ML DISP.SYRIN SQ SCH (10:10)
[2017-09-20] MEDS ORDERED: LEVO500T2 PO (10:41)
[2017-09-20] MEDS ORDERED: ALBU1.25 NEB (10:41)
[2017-09-20] MEDS ORDERED: VANCOMYCIN 0.75 GM in IV D5W 250 ML IV SCH (14:00)
--- NOTE | 2017-09-20 14:13 | NUR ---
RN NOTES VANCOMYCIN HELD, VANCO TROUGH 20, VERIFIED WITH PHARMACY.
[2017-09-20] MEDS: GABAPENTIN 400 MG CAPSULE PO SCH (15:52)
[2017-09-20] MEDS: hydrALAZINE HCL 25 MG TABLET PO PRN (15:53)
[2017-09-20 16:00] VITALS: BP 127/72
--- NOTE | 2017-09-20 19:30 | NUR ---
RN CLOSING NOTES PATIENT RESTING ON BED. NO ACUTE DISTRESS, NO SOB NOTED. DENIES PAIN OR DISCOMFORT. ALL NEEDS ATTENDED AND PROVIDED. TURN EVERY 2 HOURS NEEDED. KEPT PATIENT SAFE AND COMFORTABLE. BED IN LOW, LOCKED POSITION, SIDERAILS UPX2. SEMIFOWLERS POSITION. CALL LIGHT IN REACH. ENDORSED TO NIGHT RN FOR CARLOS. PATIENT IS FOR DISCHARGE WAITING FOR THE AMBULANCE CREW.
--- NOTE | 2017-09-20 19:30 | NUR ---
RN NOTES RECEIVED PATIENT IN BED AWAKE, AO X 3, ABLE TO MAKE NEEDS KNOWN. NO ACUTE DISTRESS NOTED. DENIES ANY PAIN AT THIS TIME. IV SITE PATENT, INTACT; FLUSHED. TRACH INTACT. SAFETY REMINDERS GIVEN. ON LOW BED WITH BILATERAL UPPER SIDE RAILS UP. CALL ABBOTT WITHIN EASY REACH. WILL CONTINUE TO MONITOR.
[2017-09-20 20:00] VITALS: BP 144/73
[2017-09-20] MEDS: TEMAZEPAM 15 MG CAPSULE PO PRN (20:25)
--- NOTE | 2017-09-20 21:10 | NUR ---
RN NOTES PATIENT PICKED UP BY [facility] FOR DISCHARGE TO [facility]. PATIENT IN STABLE CONDITION. REPORT AND DISHARGE PAPERS GIVEN TO [facility] STAFF. DISCHARGE INSTRUCTIONS GIVEN TO PATIENT; VERBALIZED UNDERSTANDING. BELONGINGS PACKED AND GIVEN TO [facility] STAFF.
== END 2017-09-20 21:10 | DRG 177 ==
LOC: ER 21:53 → TELE 09-15 00:57 → MED 09-15 08:55
PROVIDERS: ADMIT Nurse Practitioner Acute Care; ATTEND Nurse Practitioner Acute Care
DX: J15.6 Pneumonia due to other Gram-negative bacteria (principal); G82.50 Quadriplegia, unspecified; L89.159 Pressure ulcer of sacral region, unspecified stage; N39.0 Urinary tract infection, site not specified; Z93.0 Tracheostomy status; L89.629 Pressure ulcer of left heel, unspecified stage; G62.9 Polyneuropathy, unspecified; K21.9 Gastro-esophageal reflux disease without esophagitis; E78.5 Hyperlipidemia, unspecified; Z87.440 Personal history of urinary (tract) infections; N31.9 Neuromuscular dysfunction of bladder, unspecified; I10 Essential (primary) hypertension; D64.9 Anemia, unspecified; M19.90 Unspecified osteoarthritis, unspecified site; F41.9 Anxiety disorder, unspecified; Z79.899 Other long term (current) drug therapy; J98.01 Acute bronchospasm; M06.9 Rheumatoid arthritis, unspecified
CPT/HCPCS: 31720; 36415; 36600; 71010-TC; 80048-TC; 80061-TC; 80076-TC; 80202-TC; 81000-TC; 82803-TC; 83735-TC; 83880; 84100-TC; 84484-TC; 85025-TC; 87040-TC; 87070-TC; 87081-TC; 87086-TC; 87400; A4216; A4606; A6402; J0696; J1650; J1956; J2543; J3370; J7030; J7050; J7060; Z7610